=== PATIENT | male | born 1990 | race Caucasian/White ===

== ENCOUNTER 2018-03-31 11:40 | Emergency (ER) | payer MEDICAID ==
[~2018-03-31] VITALS: Ht 175.3 cm; Wt 90.7 kg
[2018-03-31 11:45] VITALS: BP_SYST 139
[2018-03-31 12:51] LABS: CALCIUM 9.1 mg/dL (8.4-11.0); CREATININE 0.93 mg/dL (0.55-1.30); POTASSIUM 4.3 mmol/L (3.5-5.1)
[2018-03-31 12:52] LABS: BASOPHILS % (AUTO) 0.2 % (0.0-2.0); EOSINOPHILS % (AUTO) 0.2 % (0.0-4.0); HEMATOCRIT 47.9 % (36-54); HEMOGLOBIN 15.9 g/dL (14.0-18.0); LYMPHOCYTES # (AUTO) 0.6 K/uL (1.0-5.5); LYMPHOCYTES % (AUTO) 3.9 % (20.5-51.5); MEAN CORPUSCULAR HEMOGLOBIN 28 pg (27-31); MEAN CORPUSCULAR HGB CONC 33 % (32-36); MEAN CORPUSCULAR VOLUME 85 fL (79.0-98.0); MONOCYTES # (AUTO) 0.9 K/uL (0.0-1.0); MONOCYTES % (AUTO) 5.7 % (1.7-9.3); NEUTROPHILS # (AUTO) 13.6 K/uL (1.8-7.7); PLATELET COUNT (AUTO) 258 K/uL (130-430); RED BLOOD CELL COUNT(AUTO) 5.62 MIL/uL (4.2-6.2); RED CELL DISTRIBUTION WIDTH 12.2 % (9.0-15.0); WHITE BLOOD COUNT (AUTO) 15.1 K/uL (4.8-10.8)
[2018-03-31 12:57] LABS: ALBUMIN 4.1 g/dL (3.4-4.8); PROTHROMBIN TIME 9.9 SECS (9.5-12.5); TOTAL BILIRUBIN 0.5 mg/dL (0.0-1.0)
[2018-03-31] MEDS ORDERED: MAG HYDROX/AL HYDROX/SIMETH 30 ML, BELLADONNA ALKALOIDS/PHENOBARB 10 ML, LIDOCAINE VISC... PO ONE ×3 (14:15)
[2018-03-31] MEDS ORDERED: ONDANSETRON 4 MG ODT TAB PO ONE (14:15)
[2018-03-31 15:37] VITALS: BP_SYST 139
== END 2018-03-31 15:37 | disposition home or self-care (01) ==
LOC: SED 11:40
DX: K21.9 Gastro-esophageal reflux disease without esophagitis (principal); R03.0 Elevated blood-pressure reading, without diagnosis of hypertension; Z88.0 Allergy status to penicillin
CPT/HCPCS: 36415; 80053; 82150; 83690; 85025; 85610; 85730; 99283; J2001; Q0162

== ENCOUNTER 2019-04-12 23:20 | Emergency (ER) | payer MEDICAID ==
[~2019-04-12] VITALS: Ht 175.3 cm; Wt 95.3 kg
[2019-04-12 23:25] VITALS: BP_SYST 118
--- NOTE | 2019-04-12 23:31 | NUR ---
Patient to ER bed 05 to gown for evaluation. Side rails up. Report given to CIERA Dennis
--- NOTE | 2019-04-12 23:45 | NUR ---
Dr. Amato at bedside.
--- NOTE | 2019-04-13 01:12 | NUR ---
Dr. Amato at bedside to update on POC.
[2019-04-13 01:20] VITALS: BP_SYST 122
--- NOTE | 2019-04-13 01:20 | NUR ---
Patient given written and verbal discharge instructions and verbalizes understanding. ER MD discussed with patient the results and treatment provided. Patient in stable condition. ID arm band removed. No Rx given. Patient educated on pain management and to follow up with PMD. Pain Scale 0/10. Opportunity for questions provided and answered. Medication side effect fact sheet provided.
== END 2019-04-13 01:20 | disposition home or self-care (01) ==
LOC: SED 23:20
DX: J11.1 Influenza due to unidentified influenza virus with other respiratory manifestations (principal)
CPT/HCPCS: 36415; 71045; 86710; 99284

== ENCOUNTER 2022-01-09 05:53 | Emergency (ER) | payer MEDICAID ==
[~2022-01-09] VITALS: Ht 175.3 cm; Wt 95.3 kg
[2022-01-09 06:09] VITALS: BP_SYST 117
--- NOTE | 2022-01-09 06:14 | NUR ---
Pt from home with c/o sharp pain to left lung for 1 week and woke up with it worse today, rated 10/10. Pt reports nausea and congestion. Reports pain with movement and inhalation. Pt with low grade fever of 100.8, Dr. Aldridge made aware of temp.
--- NOTE | 2022-01-09 06:20 | NUR ---
Dr. Aldridge at bedside with patient for evaluation.
--- NOTE | 2022-01-09 06:29 | NUR ---
MONICA collected and sent to lab.
--- NOTE | 2022-01-09 06:29 | NUR ---
Patient to ER bed 08 to gown for evaluation. Side rails up. Report given to Huyen VANG.
[2022-01-09] MEDS ORDERED: IBUPROFEN 600 MG TABLET PO ONE (06:30)
--- NOTE | 2022-01-09 07:10 | NUR ---
Handoff report given to CIERA Grijalva. Questions/concerns answered.
--- NOTE | 2022-01-09 07:27 | NUR ---
RECEIVED PATIENT FROM SHIRA. SPOKE TO PATIENT; PT IS STABLE AND IS ADVISED WAITING ON RESULTS.
[2022-01-09] MEDS ORDERED: ZIT250 PO (08:17)
[2022-01-09] MEDS ORDERED: IBUP-1969 PO (08:17)
[2022-01-09 08:45] VITALS: BP_SYST 118
--- NOTE | 2022-01-09 09:13 | NUR ---
Patient given written and verbal discharge instructions and verbalizes understanding. ER MD discussed with patient the results and treatment provided. Patient in stable condition. ID arm band removed. Rx of given. Patient educated on pain management and to follow up with PMD. Pain Scale 10/10. Opportunity for questions provided and answered. Medication side effect fact sheet provided.
== END 2022-01-09 08:45 | disposition home or self-care (01) ==
LOC: SED 05:53
DX: J20.9 Acute bronchitis, unspecified (principal); R05.9 Cough, unspecified; R09.81 Nasal congestion; F12.90 Cannabis use, unspecified, uncomplicated; Z88.0 Allergy status to penicillin; Z79.899 Other long term (current) drug therapy; Z20.822 Contact with and (suspected) exposure to COVID-19
CPT/HCPCS: 36415; 71045; 99284